=== PATIENT | female | born 1960 | race Caucasian/White ===

== ENCOUNTER 2017-12-10 17:27 | Emergency (ER) | payer OTHER, SELFPAY ==
[2017-12-10 17:28] VITALS: BP 169/93; PULSE 63; RESP 14; TEMP 37; O2SAT 99; BMI 43.4
--- NOTE | 2017-12-10 18:12 | RAD_ITS ---
STUDY: X-RAY - CERVICAL SPINE REASON FOR EXAM: Female, 57 years old. Left arm pain. TECHNIQUE: 5 view(s) of the cervical spine were obtained. COMPARISON: None FINDINGS: Normal anterior atlantoaxial articulation. Normal odontoid process. There is slight loss of the normal cervical lordosis. There is multi-level endplate spondylosis. There is an anterior spondylolisthesis of C3 on C4 by 2.8 mm. There is multi-level degenerative disc disease with multilevel disc space narrowing. The soft tissue structures are unremarkable. RAD/Cerv Spine 2 or 3 Views IMPRESSION: Degenerative changes. Electronically Signed: Sheri Meng MD at 18:55 EDT Tel , Service support ,
--- NOTE | 2017-12-10 18:13 | ED.VISSUMM ---
- ER Visit Summary Date of Service: 12/10/17 Chief Complaint: Left arm pain and paresthesia History of Present Illness: The patient is a 57 F 5 week history of left arm pain and paresthesias. Patient states she awoke in 6 weeks ago felt a pinch in her neck. Denies any history of trauma. Pain goes in the back of her arm has numbness in her middle 3 fingers. She states she went to [facility] 2 weeks ago, was given a pain injection in the back region. Also saw chiropractor twice with manipulation. Was told she may need to get an MRI by the chiropractor. No x-rays were performed. No previous similar symptoms. Denies any history of gastric ulcers or kidney injuries. She was started on blood pressure medications by physician at [place]. No current PCP. Physical Examination: General: Alert and oriented ?3, no acute distress HEENT: Normocephalic, atraumatic. Moist mucosa membranes Neck: supple, positive Spurling's to the left. Cardiovascular: Regular rate and rhythm, no murmurs Respiratory: Normal breath sounds, symmetric, no distress Abdomen: Soft, nontender, nondistended Extremities: Nontender, no edema, pulses intact ?4 Neuro: Left upper extremity: Decreased sensation at the C7 dermatome on the left. Patient bilateral arm weakness to flexion extension at elbows, wrists, and handgrip and abduction. This was symmetric. Pulses were intact distally. Test Results: Cervical x-rays: Degenerative changes with anterior spondylolisthesis of C3 on C4 per radiology. Emergency Department Course and Treatment: Patient evaluation concerns for left C7 radiculopathy. She had improvement of symptoms with head flexion and side bending to the right. X-rays note diffuse degenerative changes with spondylolisthesis of C3 on C4. She is able to ambulate. Started on gabapentin and Motrin, symptoms were improving on reevaluation. She will continue on the medications and discussed ramping. She is given follow-up with PCP. She states her's chiropractor noted possibly can obtain an MRI for which she also follow-up with. All questions were answered. Treatment Plan: [] Disposition: Discharge Impression: Left C7 radiculopathy This note was generated with [employer] software. It may contain incorrect words, spelling, and punctuation that were not noted in review of the chart prior to signing ED Disposition - Plan for ED Patient: Disposition: Home or Assisted Living Chief Complaint: Upper Extremity Injury Diagnosis: Left C7 radiculopathy Instructions: ED Cervical Radiculopathy Prescriptions: Gabapentin [Neurontin] 100 mg PO TID #90 capsule Ibuprofen 600 mg PO 4X/DAY #30 tablet Referrals: Tuan Johnson MD [Primary Care Provider] - 3-5 Days Additional Instructions: Left C7 radiculopathy. Degenerative changes of cervical x-ray. Follow-up to new medications. Can see your chiropractor who you stated can get an MRI.
--- NOTE | 2017-12-10 18:16 | ED.DCSUM_ITS ---
- ER Visit Summary Date of Service: 12/10/17 Chief Complaint: Left arm pain and paresthesia History of Present Illness: The patient is a 57 F 5 week history of left arm pain and paresthesias. Patient states she awoke in 6 weeks ago felt a pinch in her neck. Denies any history of trauma. Pain goes in the back of her arm has numbness in her middle 3 fingers. She states she went to [facility] 2 weeks ago, was given a pain injection in the back region. Also saw chiropractor twice with manipulation. Was told she may need to get an MRI by the chiropractor. No x-rays were performed. No previous similar symptoms. Denies any history of gastric ulcers or kidney injuries. She was started on blood pressure medications by physician at [place]. No current PCP. Physical Examination: General: Alert and oriented ?3, no acute distress HEENT: Normocephalic, atraumatic. Moist mucosa membranes Neck: supple, positive Spurling's to the left. Cardiovascular: Regular rate and rhythm, no murmurs Respiratory: Normal breath sounds, symmetric, no distress Abdomen: Soft, nontender, nondistended Extremities: Nontender, no edema, pulses intact ?4 Neuro: Left upper extremity: Decreased sensation at the C7 dermatome on the left. Patient bilateral arm weakness to flexion extension at elbows, wrists, and handgrip and abduction. This was symmetric. Pulses were intact distally. Test Results: Cervical x-rays: Degenerative changes with anterior spondylolisthesis of C3 on C4 per radiology. Emergency Department Course and Treatment: Patient evaluation concerns for left C7 radiculopathy. She had improvement of symptoms with head flexion and side bending to the right. X-rays note diffuse degenerative changes with spondylolisthesis of C3 on C4. She is able to ambulate. Started on gabapentin and Motrin, symptoms were improving on reevaluation. She will continue on the medications and discussed ramping. She is given follow-up with PCP. She states her's chiropractor noted possibly can obtain an MRI for which she also follow-up with. All questions were answered. Treatment Plan: [] Disposition: Discharge Impression: Left C7 radiculopathy This note was generated with [employer] software. It may contain incorrect words, spelling, and punctuation that were not noted in review of the chart prior to signing ED Disposition - Plan for ED Patient: Disposition: Home or Assisted Living Chief Complaint: Upper Extremity Injury Diagnosis: Left C7 radiculopathy Instructions: ED Cervical Radiculopathy Prescriptions: Gabapentin [Neurontin] 100 mg PO TID #90 capsule Ibuprofen 600 mg PO 4X/DAY #30 tablet Referrals: Tuan Johnson MD [Primary Care Provider] - 3-5 Days Additional Instructions: Left C7 radiculopathy. Degenerative changes of cervical x-ray. Follow-up to new medications. Can see your chiropractor who you stated can get an MRI.
[2017-12-10] MEDS: Gabapentin 100 MG Capsule PO (18:22)
[2017-12-10] MEDS: Ibuprofen 600 MG Tablet PO (18:23)
[2017-12-10 19:30] VITALS: BP 194/98; PULSE 54; O2SAT 100
== END 2017-12-10 19:38 | disposition home or self-care (01) ==
PROVIDERS: Emergency Provider Emergency Medicine; Family Provider Family Medicine; PCP Family Medicine
DX: M54.12 Radiculopathy, cervical region (principal); I10 Essential (primary) hypertension; Z72.0 Tobacco use; M43.12 Spondylolisthesis, cervical region
CPT/HCPCS: 72040; 99283

== ENCOUNTER 2023-12-31 21:21 | Emergency (ER) | payer MEDICAID, SELFPAY ==
[2023-12-31] VITALS (9 sets, daily range): BP systolic 166–232; BP diastolic 82–123; PULSE 64–88; RESP 18–25; TEMP 36.7–36.9; O2SAT 95–98; BMI 84.5
--- NOTE | 2023-12-31 21:33 | EKG12_ITS ---
Test Reason : DYSRHYTHMIA Blood Pressure : / mmHG Vent. Rate : 075 BPM Atrial Rate : 075 BPM P-R Int : 152 ms QRS Dur : 070 ms QT Int : 386 ms P-R-T Axes : 044 019 060 degrees QTc Int : 431 ms Sinus rhythm with Premature supraventricular complexes Nonspecific ST abnormality Abnormal ECG Confirmed by Manuel Christensen ([id number]), senior editor LINDA RAGUETA ([id number]) on 01/01/2024 10:03:10 AM Referred By: Confirmed By:Manuel Christensen
--- NOTE | 2023-12-31 21:33 | CT_ITS ---
We are attempting to reach an attending provider to discuss findings. An addendum with communication details will be sent when the communication is complete. INDICATION: NEURO DEFICIT EXAMINATION: CT BRAIN - CT Head Stroke Protocol W/O Contrast Injection TECHNIQUE: Serial CT axial images were obtained of the head without intravenous contrast. A radiation dose optimization technique was used for this scan. COMPARISON: None. Findings: Serial CT axial images of the head without contrast. BRAIN PARENCHYMA: Diffuse periventricular hypoattenuation likely chronic white matter ischemic changes. No significant volume loss. No evidence of intraparenchymal hemorrhage or hyperattenuating extra-axial fluid collection. Partially imaged large ovoid 18 mm calcified lesion within the left posterolateral central bony spinal canal at the C1-C2 level better appreciated on head and neck CTA same day. VASCULAR STRUCTURES: Atherosclerotic vascular calcifications. BONES: Left maxillary sinus small retention cyst. SCALP/REMAINING SOFT TISSUES: Unremarkable. ASPECTS Score for Acute Strokes, if applicable: 10 CT/STROKE Brain/Head without Cont IMPRESSION: Age-related changes as above, without evidence of acute intracranial hemorrhage in this noncontrast head CT. Partially imaged large ovoid 18 mm calcified lesion within the left posterolateral central bony spinal canal at the C1-C2 level better appreciated on head and neck CTA same day. Electronically Signed: Raul Bazzi MD at 22:04 EDT ,
--- NOTE | 2023-12-31 21:34 | CT_ITS ---
STUDY: CTA HEAD AND NECK WITH CONTRAST REASON FOR EXAM: Female, 63 years old. Mental status change RADIATION DOSAGE (If Supplied By Facility): CTDIvol = ( 29.18 ) mGy, DLP = ( 741.82 ) mGycm TECHNIQUE: CT angiography was performed with a multi-detector CT scanner. Data acquisition was obtained from the skull base through the vertex following intravenous administration of IV 100mL [id number]-[id number]. MIP images were reconstructed from the axial data set. Post-processing of the angiographic images was performed, with multiplanar reformation and 3D reconstruction. Individualized dose optimization techniques were used for this CT. COMPARISON: No relevant priors. FINDINGS: Normal bilateral petrous carotid arteries. Normal right cavernous carotid artery with a normal supraclinoid bifurcation. Normal left cavernous carotid artery with a normal supraclinoid bifurcation. Normal right A1 segments of the anterior cerebral artery. Normal left A1 segments of the anterior cerebral artery. Normal intact anterior communicating artery (ACOM). Normal bilateral A2 segments of the anterior cerebral arteries. Normal right M1 and M2 segments of the middle cerebral arteries, with a normal M1 bifurcation. Normal left M1 and M2 segments of the middle cerebral arteries, with a normal M1 bifurcation. Normal right posterior communicating artery (PCOM). Normal left posterior communicating artery (PCOM). Normal bilateral vertebral arteries. Normal basilar artery with a normal basilar bifurcation. The visualized bilateral superior cerebellar (SCA) arteries are normal. Normal bilateral P1, P2 and visualized P3 segments of the posterior cerebral arteries. There is no demonstrated aneurysm of the [place]. There is no demonstrated abnormality of the visualized brain. AORTIC ARCH: Normal visualized aortic arch. Normal origins of the brachiocephalic, left common carotid, and left subclavian arteries. RIGHT CAROTID ARTERIES: Normal right common carotid artery (CCA). There is mild atherosclerotic plaque formation with minimal narrowing of the right carotid bulb. Normal origin of the right internal carotid (ICA) artery without a hemodynamically significant stenosis. Normal visualized cervical portion of the right internal carotid artery. Normal origin of the right external carotid artery (ECA). LEFT CAROTID ARTERIES: Normal left common carotid artery (CCA). There is mild atherosclerotic plaque formation with minimal narrowing of the left carotid bulb. Normal origin of the left internal carotid (ICA) artery without a hemodynamically significant stenosis. Normal visualized cervical portion of the left internal carotid artery. Normal origin of the left external carotid artery (ECA). Both common carotid and internal carotid arteries demonstrate tortuosity VERTEBRAL ARTERIES: Normal bilateral vertebral arteries. The soft tissues however demonstrate that the previously noted hyperdense lesion within the left posterior lateral central canal at the C1-2 level is noncalcified lesion but instead represents a enhancing lesion. This is causing mass effect upon the central canal structures, displacing the proximal spinal canal to the right. I suspect this likely represents a meningioma. Neurosurgical consultation and MRI recommended for further evaluation. CT/STROKE CTA Head AND Neck W/Con IMPRESSION: No CTA evidence of vaso-occlusive disease within the brain. No CTA evidence of aneurysm or vascular malformation Mild atherosclerotic plaque in both distal common carotid arteries and the carotid bulbs but no significant stenosis. Vertebral arteries are unremarkable Extra-axial enhancing lesion within the central canal at C1/2. This is causing mass effect upon the central canal structures, displacing the central canal to the right and causing central canal stenosis. It measures approximately 2.1 x 1.4 x 1.1 cm. I suspect it represents a meningioma. There are no previous studies available for comparison. Neurosurgical consultation and MRI recommended for further evaluation N.B. : The above Results were Read Back by Lalit Lantigua MD to Dr. Tegan MD, and understanding confirmed on 12/31/2023 22:20:56 (ET). Electronically Signed: Lalit Lantigua MD at 22:24 EDT ,
--- NOTE | 2023-12-31 21:35 | ED.VIS.STROK ---
HPI History of Present Illness Chief Complaint: Neuro S/Sx Informant: patient Onset/Context/Timing Onset: Today Context: Sudden Onset Timing: Continuous Quality and Location: Positive for Slurred Speech Onset: 4 hours prior to arrival Worsened by: Nothing Relieved by: Nothing Associated Symptoms Associated Symptoms: Negative for Headache, Nausea, Vomiting or Chest Pain Narrative Narrative: Patient presents with slurred speech and drooling that began approximately 4 hours prior to arrival. Patient states he was doing her normal activities when she noticed her symptoms. Patient states they have been persistent and this prompted her to come to the emergency department. Patient denies any headaches. Patient denies any chest pain. Patient denies any nausea or vomiting. Patient denies any recent fevers or chills. Patient states she has a history of hypertension and takes her blood pressure medications in the evening. Patient states she has not taken her blood pressure medications today. PFSH PFSH Medical History HTN (hypertension) Morbid obesity Tobacco use Home Medications gabapentin 100 mg capsule (Neurontin) 100 mg PO TID ##90 12/10/17 [Rx Last Taken Unknown] ibuprofen 600 mg tablet 600 mg PO 4X/DAY #30 tabs 12/10/17 [Rx Last Taken Unknown] amlodipine 10 mg tablet 10 mg PO DAILY 12/31/23 [History Last Taken Unknown] Allergy/AdvReac Type Severity Reaction Status Date / Time codeine Allergy Vomiting Verified 12/10/17 17:28 Surgical History Previous section Social History household members: spouse Smoking Status: Current every day smoker tobacco type: cigarettes alcohol intake: current alcohol intake frequency: a few times a month Alcohol type: wine substance use type: marijuana ROS ROS ED Constitutional Constitutional ED: Denies chills or fever(s) Eyes Eyes: Denies blurry vision or change in vision ENT ENT ED: Denies rhinorrhea or sore throat Cardiovascular Cardiovascular: Denies chest pain or palpitations Respiratory/Chest Respiratory/Chest: Denies cough or dyspnea Gastrointestinal Gastrointestinal: Denies nausea or vomiting Genitourinary Genitourinary ED: Denies dysuria or hematuria Musculoskeletal Musculoskeletal: Denies back pain or neck pain Integumentary Denies abscess or rash Neurologic Neurologic: Denies headache(s) or weakness Allergic/Immunologic Allergic/Immunologic ED: Denies mouth swelling or urticaria EXAM Physical Exam Const Vital Signs: 12/31/23 21:22 12/31/23 21:30 12/31/23 22:00 Temperature 98.4 F 98.4 F Temperature Source Oral Oral Pulse Rate 84 88 70 Respiratory Rate 18 18 20 H Blood Pressure 227/117 H 227/117 H 176/111 H Blood Pressure Mean 153 153 132 Blood Pressure Source Blood Pressure Position Blood Pressure Location Pulse Ox 98 96 97 Oxygen Delivery Method Room Air Room Air Room Air 12/31/23 21:54 12/31/23 22:30 12/31/23 22:54 Temperature 98.1 F Temperature Source Oral Pulse Rate 64 70 Respiratory Rate 18 23 H Blood Pressure 232/123 H 218/102 H Blood Pressure Mean 159 140 Blood Pressure Source Monitor Blood Pressure Position Semi-Fowlers Blood Pressure Location Right Arm Pulse Ox 96 96 96 Oxygen Delivery Method Room Air Room Air 12/31/23 23:00 12/31/23 23:03 Temperature 98.1 F Temperature Source Oral Pulse Rate 72 72 Respiratory Rate 18 20 H Blood Pressure 196/110 H 196/110 H Blood Pressure Mean 138 138 Blood Pressure Source Monitor Blood Pressure Position Semi-Fowlers Blood Pressure Location Right Arm Pulse Ox 97 96 Oxygen Delivery Method Room Air Room Air Positive well nourished, well developed and obese General Appearance ED: well developed and NAD Nutritional Appearance: obese HEENT Reports moist mucous membranes Eyes PERRL and EOMs intact bilaterally Neck supple and no JVD Resp normal respiratory effort and clear to auscultation bilaterally Cardio Rate: regular rate Rhythm: regular rhythm GI soft to palpation, non-tender and non-distended Extremity normal to inspection General Extremety ED: Negative for edema or tenderness General Extremity: Negative for edema Neuro oriented x3, CN's II-XII intact bilaterally and no sensory deficits noted Magda Coma Scale: document GCS findings Spontaneous Obeys Commands Oriented 15 Sensorium / Orientation: alert Motor Exam: strength 5/5 throughout Psych mental status grossly normal NIHSS NIHSS Initial: 1a Level of Consciousness: 0 1b LOC Questions (Score 2 if aphasic/stupor): 0 1c LOC Commands (Only score 1st attempt): 0 2 Best Gaze (If aphasic, use reflexive mvmts.): 0 3 Visual: 0 4 Facial Palsy: 1 5 Motor Arm Right (UN = amputation/fusion): 0 5 Motor Arm Left: 0 6 Motor Leg Right: 0 6 Motor Leg Left: 0 7 Limb ataxia (Only + if out of proportion): 0 8 Sensory (Aphasia/stupor=0 or 1, coma=2): 0 9 Best Language: 0 10 Dysarthria (mute, coma=2, intubated=UN): 0 11 Extinction and Inattention (only scored if +): 0 Total Score: 1 MDM MDM MDM Narrative Medical decision making narrative: Differential diagnosis includes stroke, intracranial bleeding, hypertensive urgency, hypertensive emergency, electrolyte abnormality, hypoglycemia, hyperglycemia, and anxiety. CT scan of the brain will be obtained to assess for intracranial bleeding and stroke. CTA of the head and neck will be obtained to assess for large vessel occlusion and stenosis. EKG will be obtained to assess for cardiac dysrhythmia and cardiac ischemia. Chest x-ray will be obtained to assess for pneumonia and widened mediastinum. CBC will be obtained to assess for leukocytosis and anemia. Basic metabolic profile will be obtained to assess for electrolyte abnormality and renal function. PT with INR and PTT will be obtained to assess for coagulopathy. High-sensitivity troponin will be obtained to assess for cardiac ischemia. Lab Data Attestation: I reviewed the patient's lab results. Lab results narrative: CBC was reviewed. There is a mild leukocytosis of 12.9. The remainder is within normal limits. Basic metabolic profile was reviewed. BUN was 28 and creatinine was 1.45. The remainder was within normal limits. High-sensitivity troponin was reviewed and was normal at 24. PT with INR and PTT were reviewed and were within normal limits. Labs: Laboratory Results - last 24 hr 12/31/23 21:30 WBC 12.9 H RBC 4.54 Hgb 13.2 Hct 40.4 MCV 89.0 MCH 29.1 MCHC 32.7 RDW Std Deviation 44.1 H RDW Coeff of [place] 13.5 Plt Count 229 MPV 10.5 Immature Gran % (Auto) 0.300 Neut % (Auto) 78.6 H Lymph % (Auto) 13.2 L [place] % (Auto) 6.4 Eos % (Auto) 1.2 Baso % (Auto) 0.3 Absolute Neuts (auto) 10.1 H Absolute Lymphs (auto) 1.70 Nucleated RBC % 0 PT 12.6 INR 1.0 APTT 34.5 Sodium 141 Potassium 3.6 Chloride 108 H Carbon Dioxide 27.0 Anion Gap 6 BUN 28 H Creatinine 1.45 H Estim Creat Clear Calc 63.89 Est GFR (MDRD) Af Amer 47 L Est GFR (MDRD) Non-Af 39 L BUN/Creatinine Ratio 19.3 Glucose 116 H Calcium 9.5 Troponin I High Sens 24 Radiography Diagnostic Testing: Clinical Impression(s) from Imaging Studies Brain CT 12/31/23 21:33 IMPRESSION: Age-related changes as above, without evidence of acute intracranial hemorrhage in this noncontrast head CT. Partially imaged large ovoid 18 mm calcified lesion within the left posterolateral central bony spinal canal at the C1-C2 level better appreciated on head and neck CTA same day. N.B. : The above Results were Read Back by Raul Bazzi MD to Mejia Javed DO, and understanding confirmed on 12/31/2023 22:08:37 (ET). Electronically Signed: Raul Bazzi MD at 22:04 EDT , ADDENDUM: 12/31/23 2259 IMPRESSION: undefined Head/Neck CTA 12/31/23 21:34 IMPRESSION: No CTA evidence of vaso-occlusive disease within the brain. No CTA evidence of aneurysm or vascular malformation Mild atherosclerotic plaque in both distal common carotid arteries and the carotid bulbs but no significant stenosis. Vertebral arteries are unremarkable Extra-axial enhancing lesion within the central canal at C1/2. This is causing mass effect upon the central canal structures, displacing the central canal to the right and causing central canal stenosis. It measures approximately 2.1 x 1.4 x 1.1 cm. I suspect it represents a meningioma. There are no previous studies available for comparison. Neurosurgical consultation and MRI recommended for further evaluation N.B. : The above Results were Read Back by Lalit Lantigua MD to Dr. Tegan MD, and understanding confirmed on 12/31/2023 22:20:56 (ET). Electronically Signed: Lalit Lantigua MD at 22:24 EDT , ADDENDUM: 12/31/23 2231 IMPRESSION: No CTA evidence of vaso-occlusive disease within the brain. No CTA evidence of aneurysm or vascular malformation Mild atherosclerotic plaque in both distal common carotid arteries and the carotid bulbs but no significant stenosis. Vertebral arteries are unremarkable Extra-axial enhancing lesion within the central canal at C1/2. This is causing mass effect upon the central canal structures, displacing the central canal to the right and causing central canal stenosis. It measures approximately 2.1 x 1.4 x 1.1 cm. I suspect it represents a meningioma. There are no previous studies available for comparison. Neurosurgical consultation and MRI recommended for further evaluation N.B. : The above Results were Read Back by Lalit Lantigua MD to Dr. Tegan MD, and understanding confirmed on 12/31/2023 22:20:56 (ET). Electronically Signed: Lalit Lantigua MD at 22:24 EDT , Chest X-Ray 12/31/23 22:08 IMPRESSION: Heterogeneous irregular sclerosis of the left humeral head with suggestion of cortical irregularity, suggesting fracture of uncertain chronicity. This may be better evaluated with dedicated left shoulder radiographs as indicated, if previous examination is not available to document long-term stability. Chest otherwise with no acute disease. Electronically Signed: Raul Bazzi MD at 23:20 EDT , CT scan of the brain was obtained. There is no acute intracranial hemorrhage. There is a calcified lesion in the left posterior lateral spinal canal at the C1-C2 level. This was interpreted by the radiologist was also independently reviewed by myself. CTA of the head and neck was obtained. There is no large vessel occlusion. There is no aneurysm or AVM. There is mild atherosclerotic plaque in the common carotid arteries and carotid bulbs but no significant stenosis. There is an extra-axial enhancing lesion within the central canal at C1-C2. This measures approximately 2.1 x 1.4 x 1.1 cm. It could be a meningioma. Neurosurgical consultation and MRI was recommended for further evaluation. This was interpreted by the radiologist and was also dependently reviewed by myself. Portable 1 view chest x-ray was obtained. On my independent interpretation, lung de jesus are clear. There is normal cardiac silhouette. There is irregular sclerosis of the humeral head on the left suggesting fracture of uncertain chronicity. There is no acute process noted. Radiologist also interpreted the x-ray and agrees. EKG Initial EKG: Attestation: I personally reviewed and interpreted this EKG as follows: Interpretation: Sinus Rhythm (With occasional PACs with a rate of 75) and No Acute Injury Pattern Comments: EKG was obtained. On my independent interpretation, it showed a normal sinus rhythm with occasional PACs with a rate of 75. IN interval, QRS interval, and QTc intervals were all normal. Laura was normal. There are no acute ST or T wave changes. Prior EKG tracings: available for review Prior: Unchanged (01/12/2017) Management Discussion w/another healthcare provider: Hospitalist, Drywall Applicator and Radiologist Treatment and Re-Evaluation Narrative: Case was discussed with Dr. Brandt, stroke neurologist from [facility]. He states that the patient does not require thrombolytics at this time. He states that the patient can be admitted here for further stroke evaluation pending CTA results. After the CTA results were obtained, case was discussed with Dr. Brandt again. He accepted the patient to be transferred to [facility]. Patient is blood pressure remained elevated after labetalol. Because of this, patient was started on a Cardene drip. Patient was advised of all of her findings. Patient is agreeable to transfer. Stroke Documentation Questions Stroke Team Activated: Yes Reviewed Inclusion/Exclusion criteria: Yes Was Patient considered for Endovascular Intervention?: No-CTA negative, determined not to be an endovascular candidate IV Thrombolytic Administered: No Critical Care Time Critical Care Time: Yes Critical care time (excluding procedures): 30-74 minutes (42), Including time spent:, Discussing w/Patient &/or Family/Retail Business Development Manager, Discussing w/Consultants, Arranging Admission or Transfer and Performing Direct Patient Care at Bedside Discharge Plan Triage Chief Complaint: Neuro S/Sx ED Provider: Schwiger,Mejia Dx/Rx/DC Orders Clinical Impression: Slurred speech, Hypertension, Meningioma, spinal Prescriptions: No Action gabapentin [Neurontin] 100 MG capsule 100 mg PO TID Qty: 90 0RF ibuprofen 600 MG tablet 600 mg PO 4X/DAY Qty: 30 0RF amlodipine 10 mg tablet 10 mg PO DAILY Primary Care Provider: Liliam Chadwick NP Referrals: Tuan Johnson MD [Non-Staff] - Disposition Disposition: Acute Care Hospital Discharge Location: [facility]
[2023-12-31] MEDS: Labetalol (Prefilled) 20 MG/4 ML IV (21:50)
[2023-12-31 21:54] LABS: Absolute Neutrophil Count 10.1 X10^3/uL (2.0-7.7); Basophil# 0.04 X10^3/uL; Basophil% 0.3 % (0-1); Eosinophil# 0.16 X10^3/uL; Eosinophils% 1.2 % (0-5); Hematocrit 40.4 % (37-47); Hemoglobin 13.2 g/dL (12.0-15.0); Lymphocyte % 13.2 % (19-41); Mean Corp Hgb Conc 32.7 g/dL (32-36); Mean Corpuscular Hgb 29.1 pg (27.0-32.0); Mean Platelet Vol. 10.5 fl (6.2-12.0); Monocyte# 0.83 X10^3/uL; Monocyte% 6.4 % (0-10); NRBC Flagged by Analyzer 0 % (0-5); Neutrophil # 10.12 X10^3/uL (2.7-7.7); Neutrophil % 78.6 % (47-70); Platelet Count 229 K/mm3 (150-450); RBC Distribution Width CV 13.5 % (11.6-14.6); RBC Distribution Width SD 44.1 fl (35.1-43.9); Red Blood Count 4.54 M/mm3 (4.2-5.4); White Blood Count 12.9 K/mm3 (4.4-11.0)
[2023-12-31 22:05] LABS: Prothrombin Time (Protime)PT. 12.6 SECONDS (11.7-14.9)
[2023-12-31 22:06] LABS: Partial Thromboplast Time 34.5 Seconds (24.1-36.2)
--- NOTE | 2023-12-31 22:08 | RAD_ITS ---
INDICATION: Neuro deficit, acute, stroke suspected EXAMINATION/TECHNIQUE: X-RAY - XR Chest 1 View COMPARISON: None. Findings: Single frontal view of the chest. LUNG PARENCHYMA: No acute focal airspace disease or mass lesion. PLEURA: No pleural effusion. No pneumothorax. HEART/GREAT VESSELS: Cardiomediastinal silhouette is unremarkable. BONES: Heterogeneous irregular sclerosis of the left humeral head with suggestion of cortical irregularity, suggesting fracture of uncertain chronicity. RAD/Chest 1 View IMPRESSION: Heterogeneous irregular sclerosis of the left humeral head with suggestion of cortical irregularity, suggesting fracture of uncertain chronicity. This may be better evaluated with dedicated left shoulder radiographs as indicated, if previous examination is not available to document long-term stability. Chest otherwise with no acute disease. Electronically Signed: Raul Bazzi MD at 23:20 EDT ,
[2023-12-31 22:12] LABS: Anion Gap 6 (5-15); BUN 28 mg/dL (7-18); BUN/Creat Ratio 19.3 RATIO (10-20); Calcium,Total 9.5 mg/dL (8.5-10.1); Chloride 108 mmol/L (98-107); Creatinine, Serum 1.45 mg/dL (0.55-1.02); EST Glomerular Filtration Rate 39 mL/min (>60); Est Glom Filt Rate - Afr Amer 47 mL/min (>60); Estimated Creatinine Clearance 63.89 ml/min; Glucose 116 mg/dL (74-106); Potassium 3.6 mmol/L (3.5-5.1); Sodium Level 141 mmol/L (136-145); Troponin-I HS 24 pg/mL (3.0-54.0)
--- NOTE | 2023-12-31 22:21 | ED.RN ---
This RN asked Dr Javed if he wanted to put more labetolol in due to the patients bp being 223/117. He stated he would in a minute.
[2023-12-31] MEDS: NICARdipine 25 MG in 0.9% Normal Saline (250mL Bag) 240 ML 50 MG CONT INF (22:54)
[2024-01-01] VITALS (18 sets, daily range): BP systolic 142–185; BP diastolic 63–104; PULSE 57–80; RESP 14–24; TEMP 36.4–36.9; O2SAT 95–98
--- NOTE | 2024-01-01 01:16 | ED.RN ---
[facility] CALLED AT 0115 INFORMING US THAT THEY WILL NOT HAVE A CREW ON UNTIL MORNING FOR THIS PT. I ASKED WHY THEN DID WE HAVE AN INITIAL ETA OF 2-3 HOURS? HE SAID I'M NOT SURE THEN PUT ME ON HOLD TO LOOK, HE SAID THE MEDIC ON THAT CREW HAD TO LEAVE, I ASKED WHY, HE SAID HE WASN'T SURE, WENT TO CHECK AND SAID IT WAS FOR PERSONAL REASONS, AFTER HE DELAYED AND TRIED TO NOT TO ANSWER IT. I THEN REQUESTED [facility], AND NOW WE'RE WAITING ON A CALL BACK
--- NOTE | 2024-01-01 01:54 | ED.RN ---
I CALLED [facility] CURIOUS FOR AN UPDATE AT 0150 ALMOST AN HOUR AFTER REQUESTED [facility], THEY SAID THEY TRIED [facility] AND [facility]. [facility] WAS UNAVAILABLE AND [facility] HAS NOT ANSWERED YET. I REQUESTED WE TRY DIFFERENT OTHER PLACES ALSO, SO WE ARE WAITING ON ANOTHER CALL BACK
[2024-01-01] MEDS: NICARdipine 25 MG in 0.9% Normal Saline (250mL Bag) 240 ML 75 MG CONT INF ×2 (02:17→06:22)
--- NOTE | 2024-01-01 02:32 | ED.RN ---
I SPOKE WITH DOCTOR TIBURCIO ABOUT CARDENE DRIP, INSTRUCTED TO KEEP BP (SYSTOLIC) LESS THAN 200 mmHg.
[2024-01-02 15:30] LABS: Bedside Glucose 137 mg/dL (74-106)
== END 2024-01-01 08:00 | disposition short-term general hospital (02) ==
PROVIDERS: Emergency Provider Emergency Medicine; PCP Registered Nurse; Visit Provider Emergency Medicine
DX: R47.81 Slurred speech (principal); D32.1 Benign neoplasm of spinal meninges; I10 Essential (primary) hypertension; Z79.899 Other long term (current) drug therapy; F17.210 Nicotine dependence, cigarettes, uncomplicated; I25.10 Atherosclerotic heart disease of native coronary artery without angina pectoris
CPT/HCPCS: 70450; 70496; 70498; 71045; 80048; 82962; 84484; 85025; 85610; 85730; 93005; 99285; J7050; Q9967; A4216